=== PATIENT | female | born 1985 | race Caucasian/White ===

== ENCOUNTER → 2023-03-13 11:05 | Outpatient (ROUT) | payer BC, SELFPAY ==
[2023-03-13 11:21] LABS: INR 1.2 (0.9-1.3)
[2023-03-13 11:23] LABS: PTT Partial Thromboplastin Tim 46 SECONDS (25.1-36.5)
== END ==
PROVIDERS: Visit Provider Registered Nurse
DX: R23.3 Spontaneous ecchymoses (principal); N93.9 Abnormal uterine and vaginal bleeding, unspecified; R61 Generalized hyperhidrosis
CPT/HCPCS: 85610; 85730

== ENCOUNTER → 2023-03-15 10:00 | Outpatient (ROUT) | payer BC, SELFPAY ==
[2023-03-15 10:18] LABS: INR 1.2 (0.9-1.3); Prothrombin Time 14.2 SECONDS (9.4-12.5)
[2023-03-15 10:21] LABS: PTT Partial Thromboplastin Tim 45 SECONDS (25.1-36.5)
[2023-03-15 10:26] LABS: D Dimer < 215 ng/ml (<500)
== END ==
PROVIDERS: Visit Provider Registered Nurse
DX: R23.3 Spontaneous ecchymoses (principal); R79.1 Abnormal coagulation profile
CPT/HCPCS: 85379; 85610; 85730

== ENCOUNTER → 2023-03-19 07:35 | Outpatient (CLI) | payer BC, SELFPAY ==
--- NOTE | 2023-03-19 | DI.US.S_ITS ---
PROCEDURE: US PELVIC COMPLETE INDICATIONS: ABNORMAL UTERINE BLEEDING TECHNIQUE: Real-time scanning was performed of the pelvic organs, with image documentation. Additional endovaginal scanning was necessary due to incomplete visualization of the adnexal and endometrial structures by transabdominal scanning. COMPARISON: None. FINDINGS: Uterus: Uterus is anteverted and normal in size at 7.8 x 4.0 x 4.1 cm. The myometrium is heterogeneous without dominant mass. The endometrium measures 7.3 mm combined thickness. Mildly increased vascular flow in the endometrium. Ovaries: The right ovary was not seen. The left ovary is enlarged and measures 5.6 x 4.8 x 3.7 cm for a volume of 51.7 cc. The left ovary contains two, thin-walled dominant follicles, one with a small septation/daughter cyst. The largest follicle measures 2.8 cm. The left ovary also contains numerous subcentimeter follicles. Trace left periovarian fluid. Other: No pathologic free abdominal or pelvic fluid. IMPRESSION: Normal thickness endometrium for a premenopausal female. Heterogeneous uterine myometrium without dominant mass. Enlarged left ovary containing several follicles. We strive to produce accurate, complete, and clear reports of imaging services. To assist us in improving patient care, this report was composed using standard report templates and voice recognition software. Therefore, it may contain abnormal punctuation, insertions and/or omissions. Occasional wrong-word or sound-alike substitutions may occur. Though we review the report and make efforts to correct it, we do recommend that the report be read carefully in proper context to recognize any text inaccuracies. Dictated by: Babita Buckley M.D. on 03/22/2023 at 9:39 Approved by: Babita Buckley M.D. on 03/22/2023 at 9:43
== END ==
LOC: US 07:36
PROVIDERS: PCP Registered Nurse; Referring Provider Registered Nurse; Visit Provider Registered Nurse
DX: N93.9 Abnormal uterine and vaginal bleeding, unspecified (principal); N83.8 Other noninflammatory disorders of ovary, fallopian tube and broad ligament
CPT/HCPCS: 76830; 76856

== ENCOUNTER → 2023-12-26 08:00 | Outpatient (CLI) | payer BC, SELFPAY ==
--- NOTE | 2023-12-26 | DI.MG.S_ITS ---
BILATERAL DIGITAL SCREENING MAMMOGRAM 3D/2D WITH CAD: 12/26/2023 CLINICAL: Baseline exam. Routine screening. Family history of breast cancer. No prior exams were available for comparison. The breasts are heterogeneously dense, which may obscure small masses (category c / 51-75% glandular tissue). Current study was also evaluated with a Computer Aided Detection (CAD) system. No significant masses, calcifications, or other findings are seen in either breast. IMPRESSION: NEGATIVE There is no mammographic evidence of malignancy. A 1 year screening mammogram is recommended. Based on Tyrer-Cuzick model (a risk assessment model), the patient's lifetime risk is 24.6% and her 10 year risk is 3.0%. If a patient has an elevated risk, a more comprehensive evaluation should be considered and/or a referral to a genetic counselor. The [place] [employer], [place] [employer], and NCCN Guidelines advise the consideration of Breast MRI as an adjunct to screening mammography in patients whose Lifetime risk to develop breast cancer is 20% or higher. This exam was interpreted at Station ID: [id number]. NOTE: For mammograms, a report in lay terms will be sent to the patient. Approximately 15% of breast malignancies will not be visualized mammographically. In the management of a palpable breast mass, a negative mammogram must not discourage biopsy of a clinically suspicious lesion. Electronically Signed By: Danette Marroquin M.D., Ph.D. [email or web address]:12/27/2023 18:02:19 copy to: Suresh Garcia MD, [facility] letter sent: Normal Exam ACR BI-RADS Category 1: Negative
== END ==
PROVIDERS: PCP Registered Nurse; Referring Provider Registered Nurse; Visit Provider Registered Nurse
DX: Z12.31 Encounter for screening mammogram for malignant neoplasm of breast (principal); Z80.3 Family history of malignant neoplasm of breast; R92.333 Mammographic heterogeneous density, bilateral breasts
CPT/HCPCS: 77063; 77067